=== PATIENT | male | born 1975 | race Two or more races ===

== ENCOUNTER 2018-09-21 10:17 | Emergency (ER) | payer SELFPAY ==
[~2018-09-21] VITALS: Ht 175.3 cm; Wt 93.0 kg
[2018-09-21 10:47] VITALS: BP 120/85
[2018-09-21] MEDS ORDERED: IBUPROFEN 400 MG TABLET PO ONE (11:30)
[2018-09-21] MEDS ORDERED: IBUPROFEN 400 MG TABLET ONE (11:33)
--- NOTE | 2018-09-21 11:36 | NUR ---
For discharge. [facility] given-verbalized understanding Home ambulatory stable
== END 2018-09-21 11:39 | disposition home or self-care (01) ==
LOC: ER 10:24
DX: K04.7 Periapical abscess without sinus (principal); H71.92 Unspecified cholesteatoma, left ear; I45.6 Pre-excitation syndrome
CPT/HCPCS: 99282; A4606; Z7610

== ENCOUNTER 2023-05-04 04:34 | Emergency (ER) | payer OTHER ==
[~2023-05-04] VITALS: Ht 177.8 cm; Wt 86.2 kg
[2023-05-04 08:01] VITALS: BP 127/87; TEMP 98.2; O2SAT 98
== END 2023-05-04 08:02 | disposition home or self-care (01) ==
LOC: ER 04:41
DX: R20.0 Anesthesia of skin (principal); J45.909 Unspecified asthma, uncomplicated; G20 Parkinson's disease; V89.2XXA Person injured in unspecified motor-vehicle accident, traffic, initial encounter; Y93.89 Activity, other specified; Y92.410 Unspecified street and highway as the place of occurrence of the external cause; Y99.8 Other external cause status
CPT/HCPCS: 72125-TC; 72131-TC

== ENCOUNTER 2023-05-09 18:01 | Emergency (ER) | payer OTHER ==
[~2023-05-09] VITALS: Ht 177.8 cm; Wt 73.5 kg
[2023-05-09 18:07] VITALS: BP 132/86; TEMP 98.7; O2SAT 100
[2023-05-09] MEDS ORDERED: CEPHALEXIN MONOHYDRATE 500 MG CAPSULE PO ONE ×2 (18:25→18:30)
[2023-05-09] MEDS ORDERED: CEPH500C2 PO (18:33)
== END 2023-05-09 18:40 | disposition home or self-care (01) ==
LOC: ER 18:06
DX: L03.113 Cellulitis of right upper limb (principal); J45.909 Unspecified asthma, uncomplicated; G20 Parkinson's disease